=== PATIENT | male | born 1955 | race Caucasian/White ===

== ENCOUNTER 2018-04-19 09:40 | Emergency (ER) | payer BC ==
[2018-04-19] MEDS ORDERED: Ketorolac 30 MG/ML SDV IM ONE (10:28)
--- NOTE | 2018-04-19 10:37 | EDM.PDOC ---
ED HPI GENERAL MEDICAL PROBLEM - General Chief Complaint: Back Pain or Injury Stated Complaint: LEGS HURTS Time Seen by Provider: 04/19/18 09:40 Source of Information: Reports: Patient History Limitations: Reports: No Limitations - History of Present Illness INITIAL COMMENTS - FREE TEXT/NARRATIVE: Dimas Kirby is a 62 y/o male presenting today to the ER complaining of Low back pain and leg pain. Patient states that for the past 1 month he has noticed worsening lower extremity edema and worsening low back pain. States he has gone couple of times to the chiropractor and he stated he had degenerative disease and see a medical provider. Former smoker, quit 5 years ago. Is taking albuterol and ipratropium for COPD. No chest pain or shortness of breath. No abdominal pain. Having regular bowel movements and no troubles urinating. Patient has noticed that his leg hurt more often when ambulating. No recent trauma to back or legs. No previous procedures. Bilateral Hip Pain Score (Numeric/FACES): 8 - Related Data Allergies Allergy/AdvReac Type Severity Reaction Status Date / Time No Known Allergies Allergy Verified 04/19/18 10:01 Home Meds: Home Meds Albuterol Sulfate [Proair Respiclick] 2 puff PO Q6HR PRN 30 Days #1 [email or web address] 04/19/18 [Rx] Diclofenac Sodium 100 gm TP TID #1 gel..gram. 04/19/18 [Rx] Ipratropium/Albuterol Sulfate [Iprat-Albut 0.5-3(2.5) mg/3 ml] 1 ampule PO QID # 1 ampul.neb 04/19/18 [Rx] Past Medical History Respiratory History: Reports: COPD - Infectious Disease History Infectious Disease History: Reports: Chicken Pox - Past Surgical History HEENT Surgical History: Reports: Tonsillectomy Other Musculoskeletal Surgeries/Procedures:: Degenerative Disc Disease Social & Family History - Family History Family Medical History: Noncontributory - Tobacco Use Smoking Status *Q: Former Smoker Used Tobacco, but Quit: Yes Month/Year Tobacco Last Used: 2012 - Caffeine Use Caffeine Use: Reports: Coffee - Recreational Drug Use Recreational Drug Use: No ED ROS GENERAL - Review of Systems Review Of Systems: See Below Constitutional: Reports: No Symptoms HEENT: Reports: No Symptoms Respiratory: Reports: No Symptoms Cardiovascular: Reports: No Symptoms Endocrine: Reports: No Symptoms GI/Abdominal: Reports: No Symptoms : Reports: No Symptoms Musculoskeletal: Reports: Back Pain, Leg Pain Skin: Reports: No Symptoms Neurological: Reports: No Symptoms Psychiatric: Reports: No Symptoms Hematologic/Lymphatic: Reports: No Symptoms Immunologic: Reports: No Symptoms ED EXAM,LOWER BACK PAIN/INJURY - Physical Exam Exam: See Below Exam Limited By: No Limitations General Appearance: Alert, WD/WN, No Apparent Distress Throat/Mouth: Other (bad dentition. missing teeth.) Head: Atraumatic, Normocephalic Respiratory/Chest: No Respiratory Distress, Lungs Clear, Normal Breath Sounds, No Accessory Muscle Use, Chest Non-Tender, Prolonged Expiration. No: Wheezing Cardiovascular: Normal Peripheral Pulses, Regular Rate, Rhythm, No Edema, No Gallop, No JVD, No Murmur, No Rub GI/Abdominal: Normal Bowel Sounds, Soft, Non-Tender, No Organomegaly, No Distention, No Abnormal Bruit, No Mass Back Exam: Vertebral Tenderness, Other (lumbar, sacra vertebral tenderness. No paraspinal muscle pain.) Extremities: Other (bilateral lower extremity edema, 1 + pitting edema. Loss of leg hair. Pedal pulses intact. Feet warm. Sensation intact bilaterally.) Neurological: Alert, Normal Mood/Affect, Normal Dorsiflexion, CN II-XII Intact, Normal Plantar Flexion, Normal Gait, Normal Reflexes, No Motor/Sensory Deficits , Oriented x 3 Psychiatric: Normal Affect, Normal Mood Skin Exam: Warm, Dry, Intact, Normal Color, No Rash Course - Vital Signs Last Recorded V/S: Last Vital Signs Temp 36.6 C 04/19/18 11:30 Pulse 107 H 04/19/18 11:30 Resp 20 04/19/18 11:30 BP 117/57 L 04/19/18 11:30 Pulse Ox 90 L 04/19/18 11:30 - Orders/Labs/Meds Meds: Medications Discontinued Medications Generic Name Dose Route Start Last Admin Trade Name Freq PRN Reason Stop Dose Admin Ketorolac Tromethamine 30 mg 04/19/18 10:28 04/19/18 11:04 Toradol IM 04/19/18 10:29 30 mg ONETIME ONE Administration Departure - Departure Time of Disposition: 11:43 Disposition: Home, Self-Care 01 Clinical Impression: Back pain of lumbar region with sciatica - Discharge Information *PRESCRIPTION DRUG MONITORING PROGRAM REVIEWED*: Not Applicable *COPY OF PRESCRIPTION DRUG MONITORING REPORT IN PATIENT TAE: Not Applicable Prescriptions: Albuterol Sulfate [Proair Respiclick] 2 puff PO Q6HR PRN 30 Days #1 aer.[email or web address] PRN Reason: Dyspnea Diclofenac Sodium 100 gm TP TID #1 gel..gram. Ipratropium/Albuterol Sulfate [Iprat-Albut 0.5-3(2.5) mg/3 ml] 1 ampule PO QID # 1 ampul.neb Instructions: Sciatica, Back Pain, Adult, [id number] Referrals: PCP,None [Primary Care Provider] - Forms: ED Department Discharge Additional Instructions: Follow up with Dr. Deal within 1-2 weeks at [facility].
--- NOTE | 2018-04-19 11:41 | US ---
ULTRASOUND EXAMINATION OF the left and right lower extremities WITH DOPPLER HISTORY: Swelling FINDINGS: Examination of the left and right legs were performed from the groin to the calf region. All visuali zed segments including common femoral, proximal greater saphenous, superficial femoral, popliteal and calf veins appear patent with good compressibility and augmentation. There is no evidence of deep v ein thrombosis. Non suspicious inguinal lymph nodes noted bilaterally. IMPRESSION: No evidence of a DVT.
== END 2018-04-19 12:12 | disposition home or self-care (01) ==
LOC: MW.ED 09:40
DX: M54.41 Lumbago with sciatica, right side (principal); M54.42 Lumbago with sciatica, left side; J44.9 Chronic obstructive pulmonary disease, unspecified; Z87.891 Personal history of nicotine dependence
CPT/HCPCS: 93970; 96372; 99283; J1885

== ENCOUNTER 2019-02-20 12:35 | Emergency (ER) | payer MEDICAID ==
--- NOTE | 2019-02-20 12:48 | EDM.PDOC ---
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 He also has COPD and states that he has been having increased shortness of breath today. Patient uses 5 L of O2. Review of systems: As per history of present illness and below otherwise all systems reviewed and negative. Past medical history: As per history of present illness and as reviewed below otherwise noncontributory. Surgical history: As per history of present illness and as reviewed below otherwise noncontributory. Social history: No reported history of drug or alcohol abuse. Family history: As per history of present illness and as reviewed below otherwise noncontributory. Physical exam: General: Well developed, well nourished in NAD HEENT: Atraumatic, normocephalic, pupils reactive, negative for conjunctival pallor or scleral icterus, mucous membranes moist, throat clear, neck supple, nontender, trachea midline. Lungs: Clear to auscultation, markedly decreased breath sounds equal bilaterally , chest nontender. No respiratory distress or chest wall retractions Heart: S1S2, regular, negative for clicks, rubs, or JVD. Bilateral 2+ edema Abdomen: NABS, Soft, nondistended, nontender. Negative for masses or hepatosplenomegaly. Negative for costovertebral tenderness. Pelvis: Stable nontender. Genitourinary: Deferred. Rectal: Deferred. Extremities: Atraumatic, negative for cords or calf pain. Neurovascular unremarkable. Neuro: Awake, alert, oriented. Cranial nerves II through XII unremarkable. Cerebellum unremarkable. Motor and sensory unremarkable throughout. Exam nonfocal. Skin:warm and dry Diagnostics: Chest x-ray, CBC, chemistry, BNP Therapeutics: DuoNeb, Solu-Medrol ED Course: Improved, patient does not wish to be admitted he wants to go home. He has oxygen with him. Impression: Prostate cancer, COPD, Bilateral malignant pleural effusions Prescriptions: Medrol Dosepak Plan: Take meds as directed, follow up with your primary care physician, return to ER if symptoms worsen or change. Definitive disposition and diagnosis as appropriate pending reevaluation and review of above. - Related Data Allergies Allergy/AdvReac Type Severity Reaction Status Date / Time No Known Allergies Allergy Verified 07/12/18 19:41 Home Meds: Home Meds Albuterol/Ipratropium [Combivent Respimat] 2 puff INH QID 07/12/18 [History] Omeprazole 40 mg PO ACBREAKFAST 07/12/18 [History] traMADol [Ultram] 50 mg PO QID PRN 07/12/18 [History] Albuterol Sulfate [Proair Hfa] 90 mcg INH DAILY 02/20/19 [History] Diltiazem HCl [Diltiazem 24Hr Cd] 180 mg PO DAILY 02/20/19 [History] methylPREDNISolone [Medrol] 4 mg PO ASDIRECTED #1 dosepk 02/20/19 [Rx] Past Medical History HEENT History: Reports: Impaired Vision Respiratory History: Reports: COPD Other Respiratory History: "Septic" from PNA in the Genitourinary History: Reports: Other (See Below) Other Genitourinary History: prostate cancer Oncologic (Cancer) History: Reports: Prostate - Infectious Disease History Infectious Disease History: Reports: C-Difficile - Past Surgical History HEENT Surgical History: Reports: Tonsillectomy Male Surgical History: Reports: None Other Musculoskeletal Surgeries/Procedures:: Degenerative Disc Disease Social & Family History - Family History Family Medical History: Noncontributory - Caffeine Use Caffeine Use: Reports: Coffee ED ROS GENERAL - Review of Systems Review Of Systems: ROS reveals no pertinent complaints other than HPI. ED EXAM, GENERAL - Physical Exam Exam: See Below (See history of present illness) Course - Vital Signs Last Recorded V/S: Last Vital Signs Temp 98.3 F 02/20/19 12:46 Pulse 113 H 02/20/19 13:35 Resp 20 02/20/19 13:35 BP 122/62 02/20/19 13:35 Pulse Ox 95 02/20/19 13:35 - Orders/Labs/Meds Orders: Active Orders 24 hr Category Date Time Status Cardiac Monitoring [RC] . DIRECTED Care 02/20/19 12:51 Active EKG Documentation Completion [RC] STAT Care 02/20/19 12:51 Active RT Aerosol Therapy [RC] ASDIRECTED Care 02/20/19 12:52 Active Chest 1V Frontal [CR] Stat Exams 02/20/19 12:52 Taken Sodium Chloride 0.9% [Normal Saline] 250 ml Med 02/20/19 13:53 Active IV .BOLUS Sodium Chloride 0.9% [Saline Flush] Med 02/20/19 12:52 Active 10 ml FLUSH ASDIRECTED PRN Sodium Chloride 0.9% [Saline Flush] Med 02/20/19 12:52 Active 2.5 ml FLUSH ASDIRECTED PRN Saline Lock Insert [OM.PC] Stat Oth 02/20/19 12:51 Ordered Medication Orders Sodium Chloride (Normal Saline) 250 mls @ 999 mls/hr IV .BOLUS ONE Stop: 02/20/19 14:08 Sodium Chloride (Saline Flush) 10 ml FLUSH ASDIRECTED PRN PRN Reason: Keep Vein Open Sodium Chloride (Saline Flush) 2.5 ml FLUSH ASDIRECTED PRN PRN Reason: Keep Vein Open Labs: Laboratory Tests 02/20/19 02/20/19 02/20/19 Range/Units 13:16 13:16 13:16 WBC 5.87 (4.0-11.0) K/uL RBC 5.20 (4.50-5.90) M/uL Hgb 13.3 (13.0-17.0) g/dL Hct 44.0 (38.0-50.0) % MCV 84.6 (80.0-98.0) fL MCH 25.6 L (27.0-32.0) pg MCHC 30.2 L (31.0-37.0) g/dL RDW Std Deviation 56.4 (28.0-62.0) fl RDW Coeff of Kaley 18 H (11.0-15.0) % Plt Count 219 (150-400) K/uL MPV 8.90 (7.40-12.00) fL Neut % (Auto) 67.8 (48.0-80.0) % Lymph % (Auto) 17.2 (16.0-40.0) % [place] % (Auto) 13.3 (0.0-15.0) % Eos % (Auto) 1.5 (0.0-7.0) % Baso % (Auto) 0.2 (0.0-1.5) % Neut # (Auto) 4.0 (1.4-5.7) K/uL Lymph # (Auto) 1.0 (0.6-2.4) K/uL [place] # (Auto) 0.8 (0.0-0.8) K/uL Eos # (Auto) 0.1 (0.0-0.7) K/uL Baso # (Auto) 0.0 (0.0-0.1) K/uL Nucleated RBC % 0.0 /100WBC Nucleated RBCs # 0 K/uL Sodium 131 L (136-148) mmol/L Potassium 4.8 (3.5-5.1) mmol/L Chloride 95 L (98-107) mmol/L Carbon Dioxide 39.6 H (21.0-32.0) mmol/L BUN 5 L (7.0-18.0) mg/dL Creatinine 0.6 L (0.8-1.3) mg/dL Est Cr Clr Drug Dosing TNP Estimated GFR (MDRD) > 60.0 ml/min Glucose 116 H (74-106) mg/dL Calcium 8.8 (8.5-10.1) mg/dL Total Bilirubin 0.3 (0.2-1.0) mg/dL AST 11 L (15-37) IU/L ALT 9 L (14-63) IU/L Alkaline Phosphatase 99 (46-116) U/L B-Natriuretic Peptide 95 (<100) PG/ML Total Protein 6.2 L (6.4-8.2) g/dL Albumin 3.0 L (3.4-5.0) g/dL Globulin 3.2 (2.6-4.0) g/dL Albumin/Globulin Ratio 0.9 (0.9-1.6) Meds: Medications Generic Name Dose Route Start Last Admin Trade Name Freq PRN Reason Stop Dose Admin Sodium Chloride 250 mls @ 999 mls/hr 02/20/19 13:53 Normal Saline IV 02/20/19 14:08 .BOLUS ONE Sodium Chloride 10 ml 02/20/19 12:52 Saline Flush FLUSH ASDIRECTED PRN Keep Vein Open Sodium Chloride 2.5 ml 02/20/19 12:52 Saline Flush FLUSH ASDIRECTED PRN Keep Vein Open Discontinued Medications Generic Name Dose Route Start Last Admin Trade Name Freq PRN Reason Stop Dose Admin Albuterol/Ipratropium 3 ml 02/20/19 12:52 02/20/19 13:12 Duoneb 3.0-0.5 Mg/3 Ml NEB 02/20/19 12:53 3 ml ONETIME ONE Administration Methylprednisolone Sodium Succinate 125 mg 02/20/19 12:52 02/20/19 13:12 Solu-Medrol IVPUSH 02/20/19 12:53 125 mg ONETIME ONE Administration Departure - Departure Time of Disposition: 14:01 Disposition: Home, Self-Care 01 Condition: Good Clinical Impression: COPD exacerbation, Bilateral pleural effusion - Discharge Information *PRESCRIPTION DRUG MONITORING PROGRAM REVIEWED*: No *COPY OF PRESCRIPTION DRUG MONITORING REPORT IN PATIENT TAE: No Prescriptions: methylPREDNISolone [Medrol] 4 mg PO ASDIRECTED #1 dosepk Referrals: Georges Cisse MD [Primary Care Provider] - Forms: ED Department Discharge Additional Instructions: The following information is given to patients seen in the emergency department who are being discharged to home. This information is to outline your options for follow-up care. We provide all patients seen in our emergency department with a follow-up referral. The need for follow-up, as well as the timing and circumstances, are variable depending upon the specifics of your emergency department visit. If you don't have a primary care physician on staff, we will provide you with a referral. We always advise you to contact your personal physician following an emergency department visit to inform them of the circumstance of the visit and for follow-up with them and/or the need for any referrals to a consulting specialist. The emergency department will also refer you to a specialist when appropriate. This referral assures that you have the opportunity for follow-up care with a specialist. All of these measure are taken in an effort to provide you with optimal care, which includes your follow-up. Under all circumstances we always encourage you to contact your private physician who remains a resource for coordinating your care. When calling for follow-up care, please make the office aware that this follow-up is from your recent emergency room visit. If for any reason you are refused follow-up, please contact the [facility] Emergency Department at and asked to speak to the emergency department charge nurse. - My Orders Last 24 Hours: My Active Orders 02/20/19 12:51 Cardiac Monitoring [RC] . DIRECTED EKG Documentation Completion [RC] STAT Saline Lock Insert [OM.PC] Stat 02/20/19 12:52 RT Aerosol Therapy [RC] ASDIRECTED Chest 1V Frontal [CR] Stat Sodium Chloride 0.9% [Saline Flush] 10 ml FLUSH ASDIRECTED PRN Sodium Chloride 0.9% [Saline Flush] 2.5 ml FLUSH ASDIRECTED PRN 02/20/19 13:53 Sodium Chloride 0.9% [Normal Saline] 250 ml IV .BOLUS - Assessment/Plan Last 24 Hours: My Active Orders 02/20/19 12:51 Cardiac Monitoring [RC] . DIRECTED EKG Documentation Completion [RC] STAT Saline Lock Insert [OM.PC] Stat 02/20/19 12:52 RT Aerosol Therapy [RC] ASDIRECTED Chest 1V Frontal [CR] Stat Sodium Chloride 0.9% [Saline Flush] 10 ml FLUSH ASDIRECTED PRN Sodium Chloride 0.9% [Saline Flush] 2.5 ml FLUSH ASDIRECTED PRN 02/20/19 13:53 Sodium Chloride 0.9% [Normal Saline] 250 ml IV .BOLUS
[2019-02-20] MEDS ORDERED: Sodium Chloride 0.9% 2.5 ML Syringe FLUSH PRN (12:52)
[2019-02-20] MEDS ORDERED: Sodium Chloride 0.9% 10 ML Syringe FLUSH PRN (12:52)
[2019-02-20] MEDS ORDERED: methylPREDNISolone Sodium Succinate 125 MG/2 ML SDV IVPUSH ONE (12:52)
[2019-02-20] MEDS ORDERED: Albuterol/Ipratropium 3.0-0.5 MG/3 ML Neb Soln NEB ONE (12:52)
[2019-02-20 13:43] LABS: CHLORIDE,CL 95 mmol/L (98-107); SODIUM,NA 131 mmol/L (136-148)
[2019-02-20] MEDS ORDERED: Sodium Chloride 0.9% 250 ML IV ONE (13:53)
--- NOTE | 2019-02-20 14:07 | CR ---
EXAMINATION: Portable chest radiograph. HISTORY: Shortness of breath. FINDINGS: The trachea is midline. The cardiomediastinal silhouette is within normal limits. Small to moderate bilateral pleural effusions with adjacent atelectasis. Osseous structures appear sclerotic, consistent with prostate metastases. IMPRESSION: 1. Small to moderate bilateral pleural effusions.
== END 2019-02-20 14:30 | disposition home or self-care (01) ==
LOC: MW.ED 12:35
DX: J44.1 Chronic obstructive pulmonary disease with (acute) exacerbation (principal); J90 Pleural effusion, not elsewhere classified; C61 Malignant neoplasm of prostate; C79.51 Secondary malignant neoplasm of bone; Z79.899 Other long term (current) drug therapy
CPT/HCPCS: 36415; 71045; 80053; 83880; 85025; 93005; 94640; 96374; 99285; J2930; 99283; J7620-GY

== ENCOUNTER 2020-02-29 09:54 | Inpatient (IN) | payer MEDICAID, OTHER ==
[2020-02-29] MEDS ORDERED: Sodium Chloride 0.9% 2.5 ML Syringe FLUSH PRN (10:01)
[2020-02-29] MEDS ORDERED: Sodium Chloride 0.9% 10 ML Syringe FLUSH PRN (10:01)
--- NOTE | 2020-02-29 10:16 | EDM.PDOC ---
ED HPI GENERAL MEDICAL PROBLEM - General Chief Complaint: Respiratory Problem Stated Complaint: TROUBLE BREATHING Time Seen by Provider: 02/29/20 10:01 Source of Information: Reports: Patient, EMS - History of Present Illness INITIAL COMMENTS - FREE TEXT/NARRATIVE: 64-year-old male past medical history of prostate adenocarcinoma with metastatic disease including spinal canal invasion and threatened spinal cord compression within the lumbar spine, status post radiotherapy.COPD, bilateral pleural effusions, GERD, Prostate cancer in remission presenting with shortness of breath. Presents to the emergency department via ambulance with complaints of worsening dyspnea since about 2:00 this morning. Patient normally uses 4 L of oxygen by nasal cannula. His friend called 911 because he was concerned about his breathing. Patient states that he is working towards being on hospice but he is not sure what for. He normally ambulates with a walker but states that he has been too weak to do so over the past 2 weeks. Paramedics noted that there was stool smeared over his medications and the patient was also incontinent of stool. Patient denies any fever or chest discomfort. He does complain of c hronic lower extremity edema that he states is not any worse lately. - Related Data Allergies Allergy/AdvReac Type Severity Reaction Status Date / Time No Known Allergies Allergy Verified 02/29/20 10:30 Home Meds: Home Meds Albuterol Sulfate [Proair Hfa] 90 mcg INH DAILY 02/20/19 [History] dilTIAZem HCL [Dilt-XR] 180 mg PO DAILY 02/29/20 [History] Past Medical History HEENT History: Reports: Impaired Vision Respiratory History: Reports: COPD Other Respiratory History: "Septic" from PNA in the Genitourinary History: Reports: Other (See Below) Other Genitourinary History: prostate cancer Oncologic (Cancer) History: Reports: Prostate - Infectious Disease History Infectious Disease History: Reports: C-Difficile - Past Surgical History HEENT Surgical History: Reports: Tonsillectomy Male Surgical History: Reports: None Other Musculoskeletal Surgeries/Procedures:: Degenerative Disc Disease Social & Family History - Family History Family Medical History: Noncontributory - Caffeine Use Caffeine Use: Reports: Coffee ED ROS GENERAL - Review of Systems Review Of Systems: See Below Constitutional: Denies: Fever HEENT: Reports: No Symptoms Respiratory: Reports: Shortness of Breath. Denies: Cough, Hemoptysis Cardiovascular: Reports: Edema (Chronic BLE). Denies: Chest Pain Endocrine: Reports: No Symptoms GI/Abdominal: Denies: Abdominal Pain, Diarrhea, Nausea, Vomiting : Reports: No Symptoms Musculoskeletal: Denies: Back Pain Skin: Denies: Rash Neurological: Denies: Headache Psychiatric: Reports: No Symptoms Hematologic/Lymphatic: Reports: No Symptoms Immunologic: Reports: No Symptoms ED EXAM, GENERAL - Physical Exam Exam: See Below Free Text/Narrative:: Vital signs reviewed. Nursing notes reviewed. Constitutional: Awake, alert, disheveled appearing man Head: Normocephalic, atraumatic. Eyes: EOMI, conjunctiva normal, no discharge, no scleral icterus. Ears, Nose, Throat: External ears and nose normal, moist oral mucosa. Tacky mucous membranes Cardiovascular: Tachycardic, 2+ radial pulse, capillary refill less than 2 seconds. RRR, no M/R/G. Pitting edema to the bilateral lower extremities Pulmonary: normal work of breathing, no accessory muscle use. CTA BL Abdomen/GI: Soft, nontender, nondistended, no guarding or rigidity, no masses. Incontinent of stool Musculoskeletal: No deformities. Integumentary: Appropriate color for ethnicity, warm, dry, no pallor or jaundice, no rash. Pressure ulcer noted to the medial aspect of the right thigh near the gluteal crease Neurologic: Alert, answering questions appropriately, normal speech, no facial droop, moving all extremities well. Psychiatric: Appropriate mood and affect, normal thought process. EKG INTERPRETATION EKG Interpretation Comments: 12-Lead ECG Interpretation Acquired: 10:35 AM Rhythm: Sinus tachycardia Rate: 119/min Baden: Normal Intervals: Right bundle branch block Ectopy: None RV Strain: No obvious RV strain pattern. ST Segments/T-Waves: ST deviation in V2, T wave inversions in leads V2 and V3 Interpretation: Compared to 07/24/[address] deviation in V2 Course - Vital Signs Text/Narrative:: 64-year-old male with shortness of breath and generalized weakness, concern for failure to thrive. Patient tachycardic but hemodynamically stable, afebrile], well-appearing, looks nontoxic. Differential diagnosis includes but is not limited to: Sepsis, pneumonia, congestive heart failure, pulmonary embolism, thoracic aortic dissection, pericardial effusion, bacteremia, electrolyte disturbance, anemia, acute coronary syndrome, viral pneumonia, COPD exacerbation, etc. CBC shows a stable anemia. INR is normal. D-dimer elevated at 3.41. Normal lactate. Electrolytes and renal function are reassuring. Troponin negative. BNP within normal limits. Hepatic markers suggest poor nutrition. Chest x-ray stable. CT pulmonary angiogram shows bilateral pleural effusions but no evidence of pulmonary embolism. Suspect that patient's symptoms are due to volume overload given pedal edema and pleural effusions. No evidence of myocardial ischemia, infection, or PE. Continued to have resting tachycardia to 125. Will defer decision about volume resuscitation versus diuresis to the admitting hospitalist Dr. Nails. Admitted to observation status in good condition. Last Recorded V/S: Last Vital Signs Temp 36.6 C 02/29/20 10:00 Pulse 122 H 02/29/20 13:04 Resp 17 02/29/20 13:04 BP 106/51 L 02/29/20 13:04 Pulse Ox 100 02/29/20 13:04 - Orders/Labs/Meds Orders: Active Orders 24 hr Category Date Time Status Patient Status [ADT] Stat ADT 02/29/20 13:57 Active Cardiac Monitoring [RC] CONTINUOUS Care 02/29/20 10:02 Active EKG Documentation Completion [RC] STAT Care 02/29/20 10:01 Active Overnight Pulse Oximetry [RC] Click to Edit Care 02/29/20 10:02 Active Oxygen Therapy, ED [RC] STAT Care 02/29/20 10:02 Active CULTURE BLOOD [BC] Stat Lab 02/29/20 10:22 Received CULTURE BLOOD [BC] Stat Lab 02/29/20 10:53 Received Sodium Chloride 0.9% [Saline Flush] Med 02/29/20 10:01 Active 10 ml FLUSH ASDIRECTED PRN Sodium Chloride 0.9% [Saline Flush] Med 02/29/20 10:01 Active 2.5 ml FLUSH ASDIRECTED PRN Blood Culture x2 Reflex Set [OM.PC] Stat Oth 02/29/20 10:01 Ordered Pulse Oximetry Continuous Monitoring [OM.PC] Routine Oth 02/29/20 10:01 Ordered Saline Lock Insert [OM.PC] Stat Oth 02/29/20 10:01 Ordered Severe Sepsis Onset Time [OM.PC] Stat Oth 02/29/20 10:01 Ordered Medication Orders Sodium Chloride (Saline Flush) 10 ml FLUSH ASDIRECTED PRN PRN Reason: Keep Vein Open Sodium Chloride (Saline Flush) 2.5 ml FLUSH ASDIRECTED PRN PRN Reason: Keep Vein Open Labs: Laboratory Tests 02/29/20 02/29/20 02/29/20 Range/Units 10:22 10:22 10:22 WBC 4.59 (4.0-11.0) K/uL RBC 3.10 L (4.50-5.90) M/uL Hgb 7.5 L (13.0-17.0) g/dL Hct 26.3 L (38.0-50.0) % MCV 84.8 (80.0-98.0) fL MCH 24.2 L (27.0-32.0) pg MCHC 28.5 L (31.0-37.0) g/dL RDW Std Deviation 60.2 (28.0-62.0) fl RDW Coeff of Kaley 19 H (11.0-15.0) % Plt Count 263 (150-400) K/uL MPV 8.10 (7.40-12.00) fL Neut % (Auto) 53.5 (48.0-80.0) % Lymph % (Auto) 28.5 (16.0-40.0) % [place] % (Auto) 15.0 (0.0-15.0) % Eos % (Auto) 2.8 (0.0-7.0) % Baso % (Auto) 0.2 (0.0-1.5) % Neut # (Auto) 2.5 (1.4-5.7) K/uL Lymph # (Auto) 1.3 (0.6-2.4) K/uL [place] # (Auto) 0.7 (0.0-0.8) K/uL Eos # (Auto) 0.1 (0.0-0.7) K/uL Baso # (Auto) 0.0 (0.0-0.1) K/uL Nucleated RBC % 0.0 /100WBC Nucleated RBCs # 0 K/uL INR 1.19 D-Dimer, Quantitative (0.0-0.50) mg/L FEU Lactate 1.0 (0.20-2.00) mmol/L Sodium (136-148) mmol/L Potassium (3.5-5.1) mmol/L Chloride (98-107) mmol/L Carbon Dioxide (21.0-32.0) mmol/L BUN (7.0-18.0) mg/dL Creatinine (0.8-1.3) mg/dL Est Cr Clr Drug Dosing Estimated GFR (MDRD) ml/min Glucose (74-106) mg/dL Calcium (8.5-10.1) mg/dL Total Bilirubin (0.2-1.0) mg/dL AST (15-37) IU/L ALT (14-63) IU/L Alkaline Phosphatase (46-116) U/L Troponin I (0.000-0.056) ng/mL B-Natriuretic Peptide (<100) PG/ML Total Protein (6.4-8.2) g/dL Albumin (3.4-5.0) g/dL Globulin (2.6-4.0) g/dL Albumin/Globulin Ratio (0.9-1.6) 02/29/20 02/29/20 02/29/20 Range/Units 10:22 10:22 10:22 WBC (4.0-11.0) K/uL RBC (4.50-5.90) M/uL Hgb (13.0-17.0) g/dL Hct (38.0-50.0) % MCV (80.0-98.0) fL MCH (27.0-32.0) pg MCHC (31.0-37.0) g/dL RDW Std Deviation (28.0-62.0) fl RDW Coeff of Kaley (11.0-15.0) % Plt Count (150-400) K/uL MPV (7.40-12.00) fL Neut % (Auto) (48.0-80.0) % Lymph % (Auto) (16.0-40.0) % [place] % (Auto) (0.0-15.0) % Eos % (Auto) (0.0-7.0) % Baso % (Auto) (0.0-1.5) % Neut # (Auto) (1.4-5.7) K/uL Lymph # (Auto) (0.6-2.4) K/uL [place] # (Auto) (0.0-0.8) K/uL Eos # (Auto) (0.0-0.7) K/uL Baso # (Auto) (0.0-0.1) K/uL Nucleated RBC % /100WBC Nucleated RBCs # K/uL INR D-Dimer, Quantitative 3.41 H (0.0-0.50) mg/L FEU Lactate (0.20-2.00) mmol/L Sodium 137 (136-148) mmol/L Potassium 3.5 (3.5-5.1) mmol/L Chloride 98 (98-107) mmol/L Carbon Dioxide 35.5 H (21.0-32.0) mmol/L BUN 5 L (7.0-18.0) mg/dL Creatinine 0.5 L (0.8-1.3) mg/dL Est Cr Clr Drug Dosing TNP Estimated GFR (MDRD) > 60.0 ml/min Glucose 103 (74-106) mg/dL Calcium 8.1 L (8.5-10.1) mg/dL Total Bilirubin 0.4 (0.2-1.0) mg/dL AST 84 H (15-37) IU/L ALT 18 (14-63) IU/L Alkaline Phosphatase 685 H (46-116) U/L Troponin I < 0.050 (0.000-0.056) ng/mL B-Natriuretic Peptide 76 (<100) PG/ML Total Protein 5.6 L (6.4-8.2) g/dL Albumin 2.0 L (3.4-5.0) g/dL Globulin 3.6 (2.6-4.0) g/dL Albumin/Globulin Ratio 0.6 L (0.9-1.6) Meds: Medications Generic Name Dose Route Start Last Admin Trade Name Freq PRN Reason Stop Dose Admin Sodium Chloride 10 ml 02/29/20 10:01 Saline Flush FLUSH ASDIRECTED PRN Keep Vein Open Sodium Chloride 2.5 ml 02/29/20 10:01 Saline Flush FLUSH ASDIRECTED PRN Keep Vein Open Discontinued Medications Generic Name Dose Route Start Last Admin Trade Name Freq PRN Reason Stop Dose Admin Iopamidol 100 ml 02/29/20 12:36 02/29/20 12:37 Isovue-370 (76%) IVPUSH 02/29/20 12:37 100 ml ONETIME ONE Administration Departure - Departure Time of Disposition: 13:59 Disposition: Refer to Observation Condition: Good Clinical Impression: Dyspnea Qualifiers: Dyspnea type: shortness of breath Qualified Code(s): R06.02 - Shortness of breath; R06.00 - Dyspnea, unspecified; R06.01 - Orthopnea - Discharge Information Sepsis Event Note (ED) - Focused Exam Vital Signs: Vital Signs Temp Pulse Resp BP Pulse Ox 02/29/20 13:04 122 H 17 106/51 L 100 02/29/20 12:49 118 H 17 104/53 L 100 02/29/20 12:04 123 H 13 105/43 L 100 02/29/20 11:19 121 H 17 100/46 L 100 02/29/20 10:00 36.6 C 120 H 20 102/48 L 100 - My Orders Last 24 Hours: My Active Orders 02/29/20 10:01 EKG Documentation Completion [RC] STAT Sodium Chloride 0.9% [Saline Flush] 10 ml FLUSH ASDIRECTED PRN Sodium Chloride 0.9% [Saline Flush] 2.5 ml FLUSH ASDIRECTED PRN Blood Culture x2 Reflex Set [OM.PC] Stat Pulse Oximetry Continuous Monitoring [OM.PC] Routine Saline Lock Insert [OM.PC] Stat Severe Sepsis Onset Time [OM.PC] Stat 02/29/20 10:02 Cardiac Monitoring [RC] CONTINUOUS Overnight Pulse Oximetry [RC] Click to Edit Oxygen Therapy, ED [RC] STAT 02/29/20 10:22 CULTURE BLOOD [BC] Stat 02/29/20 10:53 CULTURE BLOOD [BC] Stat 02/29/20 13:57 Patient Status [ADT] Stat - Assessment/Plan Last 24 Hours: My Active Orders 02/29/20 10:01 EKG Documentation Completion [RC] STAT Sodium Chloride 0.9% [Saline Flush] 10 ml FLUSH ASDIRECTED PRN Sodium Chloride 0.9% [Saline Flush] 2.5 ml FLUSH ASDIRECTED PRN Blood Culture x2 Reflex Set [OM.PC] Stat Pulse Oximetry Continuous Monitoring [OM.PC] Routine Saline Lock Insert [OM.PC] Stat Severe Sepsis Onset Time [OM.PC] Stat 02/29/20 10:02 Cardiac Monitoring [RC] CONTINUOUS Overnight Pulse Oximetry [RC] Click to Edit Oxygen Therapy, ED [RC] STAT 02/29/20 10:22 CULTURE BLOOD [BC] Stat 02/29/20 10:53 CULTURE BLOOD [BC] Stat 02/29/20 13:57 Patient Status [ADT] Stat
[2020-02-29 10:57] LABS: BLOOD UREA NITROGEN,BUN 5 mg/dL (7.0-18.0); CARBON DIOXIDE,CO2 35.5 mmol/L (21.0-32.0); CHLORIDE,CL 98 mmol/L (98-107); GLUCOSE RANDOM 103 mg/dL (74-106); POTASSIUM,K 3.5 mmol/L (3.5-5.1); SODIUM,NA 137 mmol/L (136-148)
--- NOTE | 2020-02-29 11:34 | CR ---
Chest: Frontal view of the chest was obtained. Comparison: Prior chest x-ray of 02/20/19. Blunting of the costophrenic angles are noted which is stable. Lungs show no definite acute parenchymal change. Heart size and mediastinum are normal. Diffusely sclerotic osseous structures which is felt compatible with osteoblastic metastasis. Impression: 1. Findings as noted above. 2. Nothing acute is definitely appreciated. Diagnostic code #9 Study was dictated in MDT
[2020-02-29] MEDS ORDERED: Iopamidol 755 Mg/ML 100 ML Bottle IVPUSH ONE (12:36)
--- NOTE | 2020-02-29 13:09 | CT ---
CT chest Technique: Multiple axial sections were obtained from above the lung apices inferiorly through the lung bases. Intravenous contrast was utilized. Study performed as a pulmonary angiogram protocol. Findings: Pulmonary arteries are moderately well-opacified. No discrete filling defects are seen to indicate pulmonary embolism. Atherosclerotic calcifications are seen within the thoracic aorta without aneurysm. No dissection is seen. Mild coronary artery calcification is noted. Mediastinum and hilar regions show no adenopathy. Small bilateral pleural effusions are seen larger on the right side. Mild compressive atelectasis is noted adjacent to the pleural effusions. Lungs otherwise are clear. Diffusely sclerotic osseous structures are seen compatible with numerous osteoblastic metastasis. Visualized upper abdominal structures shows no discrete abnormality. Impression: 1. No findings of pulmonary embolism. 2. Small bilateral pleural effusions which are slightly larger on the right side. 3. Mild compressive type atelectasis adjacent to the pleural effusions. 4. Diffuse osteoblastic metastasis. Diagnostic code #9 Study was dictated in MDT
[2020-02-29] MEDS ORDERED: Albuterol/Ipratropium 3.0-0.5 MG/3 ML Neb Soln NEB PRN (15:15)
[2020-02-29] MEDS ORDERED: Ondansetron 4 MG/2 ML SDV IVPUSH PRN (15:15)
[2020-02-29] MEDS ORDERED: Sodium Chloride 0.9% 500 ML IV ONE (15:15)
[2020-02-29] MEDS ORDERED: Morphine 2 MG/ML SYRINGE IVPUSH PRN (15:15)
--- NOTE | 2020-02-29 15:24 | PCM.HP.2 ---
H&P History of Present Illness - General Date of Service: 02/29/20 Admit Problem/Dx: Admission Diagnosis/Problem Admission Diagnosis/Problem Dyspnea - History of Present Illness Initial Comments - Free Text/Narative: Patient is a 64-year-old male past medical history of stage 4 prostate adenocarcinoma with metastatic disease including spinal canal invasion and threatened spinal cord compression within the lumbar spine, status post radiotherapy.COPD, bilateral pleural effusions, GERD, Prostate cancer in remiss ion presenting with shortness of breath since about 2:00 this morning. Patient normally uses 4 L of oxygen by nasal cannula. His friend called 911 because he was concerned about his breathing and found him covered in his faeces.. He normally ambulates with a walker but states that he has been too weak to do so over the past 2 weeks. Patient denies any fever or chest discomfort. He does complain of chronic lower extremity edema that he states is not any worse lately. CBC shows a anemia. INR is normal. D-dimer elevated at 3.41. Normal lactate. Electrolytes and renal function are reassuring. Troponin negative. BNP within normal limits. Hepatic markers suggest poor nutrition. Chest x-ray stable. CT pulmonary angiogram shows bilateral pleural effusions but no evidence of pulmonary embolism. Patient was in [facility] sinus tachy cardia in 120s to 130s with intermittent SVT in 140s. He was admitted to ICU for further care due to concern of persistent tachycardia and soft pressures. When i saw the patient in ER he was lethargic, looked extremely dry, wasn't able to tell me his wishes about his code status as his mentation was not normal. I contacted his friend Marylu who is his rn progressive care as well she informed he has signed DNR/DNI papers in January and was going to be on hospice soon. He was supposed to have a meeting with hospice on Sunday. ABG was obtained which showed RA,hypercapnia, BiPAP was started, patient was reluctant to BiPAP. His BP started to go down despite adequate IV fluids and the ongoing blood transfusion. I called his POA , patients brother Chepe ([phone]) to get an consent for central line, Mr Mo stated his brother wouldn't not want a central line and would like the patient be made comfortable with palliative measures in place. Patient is being made comfort care and downgraded to [facility]sur. - Related Data Allergies/Adverse Reactions: Allergies Allergy/AdvReac Type Severity Reaction Status Date / Time No Known Allergies Allergy Verified 02/29/20 10:30 Home Medications: Home Meds Albuterol Sulfate [Proair Hfa] 90 mcg INH DAILY 02/20/19 [History] dilTIAZem HCL [Dilt-XR] 180 mg PO DAILY 02/29/20 [History] Past Medical History HEENT History: Reports: Impaired Vision Respiratory History: Reports: COPD Other Respiratory History: "Septic" from PNA in the Genitourinary History: Reports: Other (See Below) Other Genitourinary History: prostate cancer Oncologic (Cancer) History: Reports: Prostate - Infectious Disease History Infectious Disease History: Reports: C-Difficile - Past Surgical History HEENT Surgical History: Reports: Tonsillectomy Male Surgical History: Reports: None Other Musculoskeletal Surgeries/Procedures:: Degenerative Disc Disease Social & Family History - Family History Family Medical History: Noncontributory - Tobacco Use Smoking Status *Q: Unknown Ever Smoked - Caffeine Use Caffeine Use: Reports: Coffee H&P Review of Systems - Review of Systems: Review Of Systems: See Below Exam - Exam Exam: See Below - Vital Signs Vital Signs: Last Vital Signs Temp 36.6 C 02/29/20 10:00 Pulse 122 H 02/29/20 13:04 Resp 17 02/29/20 13:04 BP 106/51 L 02/29/20 13:04 Pulse Ox 100 02/29/20 13:04 - Exam Quality Assessment: Supplemental Oxygen General: Moderate Distress. No: Alert, Oriented Neck: Supple, Trachea Midline Lungs: Decreased Breath Sounds, Rales Cardiovascular: Normal S1, Normal S2, Tachycardia GI/Abdominal Exam: Soft, Non-Tender - Patient Data Lab Results Last 24 hrs: Laboratory Results - last 24 hr 02/29/20 02/29/20 02/29/20 Range/Units 10:22 10:22 10:22 WBC 4.59 (4.0-11.0) K/uL RBC 3.10 L (4.50-5.90) M/uL Hgb 7.5 L (13.0-17.0) g/dL Hct 26.3 L (38.0-50.0) % MCV 84.8 (80.0-98.0) fL MCH 24.2 L (27.0-32.0) pg MCHC 28.5 L (31.0-37.0) g/dL RDW Std Deviation 60.2 (28.0-62.0) fl RDW Coeff of Kaley 19 H (11.0-15.0) % Plt Count 263 (150-400) K/uL MPV 8.10 (7.40-12.00) fL Neut % (Auto) 53.5 (48.0-80.0) % Lymph % (Auto) 28.5 (16.0-40.0) % Clare % (Auto) 15.0 (0.0-15.0) % Eos % (Auto) 2.8 (0.0-7.0) % Baso % (Auto) 0.2 (0.0-1.5) % Neut # (Auto) 2.5 (1.4-5.7) K/uL Lymph # (Auto) 1.3 (0.6-2.4) K/uL Clare # (Auto) 0.7 (0.0-0.8) K/uL Eos # (Auto) 0.1 (0.0-0.7) K/uL Baso # (Auto) 0.0 (0.0-0.1) K/uL Nucleated RBC % 0.0 /100WBC Nucleated RBCs # 0 K/uL INR 1.19 D-Dimer, Quantitative (0.0-0.50) mg/L FEU Lactate 1.0 (0.20-2.00) mmol/L Sodium (136-148) mmol/L Potassium (3.5-5.1) mmol/L Chloride (98-107) mmol/L Carbon Dioxide (21.0-32.0) mmol/L BUN (7.0-18.0) mg/dL Creatinine (0.8-1.3) mg/dL Est Cr Clr Drug Dosing Estimated GFR (MDRD) ml/min Glucose (74-106) mg/dL Calcium (8.5-10.1) mg/dL Total Bilirubin (0.2-1.0) mg/dL AST (15-37) IU/L ALT (14-63) IU/L Alkaline Phosphatase (46-116) U/L Troponin I (0.000-0.056) ng/mL B-Natriuretic Peptide (<100) PG/ML Total Protein (6.4-8.2) g/dL Albumin (3.4-5.0) g/dL Globulin (2.6-4.0) g/dL Albumin/Globulin Ratio (0.9-1.6) Urine Color Urine Appearance Urine pH (5.0-8.0) Ur Specific [place] (1.001-1.035) Urine Protein (NEGATIVE) mg/dL Urine Glucose (UA) (NEGATIVE) mg/dL Urine Ketones (NEGATIVE) mg/dL Urine Occult Blood (NEGATIVE) Urine Nitrite (NEGATIVE) Urine Bilirubin (NEGATIVE) Urine Urobilinogen (<2.0) EU/dL Ur Leukocyte Esterase (NEGATIVE) Urine RBC (0-2/HPF) Urine WBC (0-5/HPF) Ur Epithelial Cells (NONE-FEW) Urine Bacteria (NEGATIVE) 02/29/20 02/29/20 02/29/20 Range/Units 10:22 10:22 10:22 WBC (4.0-11.0) K/uL RBC (4.50-5.90) M/uL Hgb (13.0-17.0) g/dL Hct (38.0-50.0) % MCV (80.0-98.0) fL MCH (27.0-32.0) pg MCHC (31.0-37.0) g/dL RDW Std Deviation (28.0-62.0) fl RDW Coeff of Kaley (11.0-15.0) % Plt Count (150-400) K/uL MPV (7.40-12.00) fL Neut % (Auto) (48.0-80.0) % Lymph % (Auto) (16.0-40.0) % Clare % (Auto) (0.0-15.0) % Eos % (Auto) (0.0-7.0) % Baso % (Auto) (0.0-1.5) % Neut # (Auto) (1.4-5.7) K/uL Lymph # (Auto) (0.6-2.4) K/uL Clare # (Auto) (0.0-0.8) K/uL Eos # (Auto) (0.0-0.7) K/uL Baso # (Auto) (0.0-0.1) K/uL Nucleated RBC % /100WBC Nucleated RBCs # K/uL INR D-Dimer, Quantitative 3.41 H (0.0-0.50) mg/L FEU Lactate (0.20-2.00) mmol/L Sodium 137 (136-148) mmol/L Potassium 3.5 (3.5-5.1) mmol/L Chloride 98 (98-107) mmol/L Carbon Dioxide 35.5 H (21.0-32.0) mmol/L BUN 5 L (7.0-18.0) mg/dL Creatinine 0.5 L (0.8-1.3) mg/dL Est Cr Clr Drug Dosing TNP Estimated GFR (MDRD) > 60.0 ml/min Glucose 103 (74-106) mg/dL Calcium 8.1 L (8.5-10.1) mg/dL Total Bilirubin 0.4 (0.2-1.0) mg/dL AST 84 H (15-37) IU/L ALT 18 (14-63) IU/L Alkaline Phosphatase 685 H (46-116) U/L Troponin I < 0.050 (0.000-0.056) ng/mL B-Natriuretic Peptide 76 (<100) PG/ML Total Protein 5.6 L (6.4-8.2) g/dL Albumin 2.0 L (3.4-5.0) g/dL Globulin 3.6 (2.6-4.0) g/dL Albumin/Globulin Ratio 0.6 L (0.9-1.6) Urine Color Urine Appearance Urine pH (5.0-8.0) Ur Specific [place] (1.001-1.035) Urine Protein (NEGATIVE) mg/dL Urine Glucose (UA) (NEGATIVE) mg/dL Urine Ketones (NEGATIVE) mg/dL Urine Occult Blood (NEGATIVE) Urine Nitrite (NEGATIVE) Urine Bilirubin (NEGATIVE) Urine Urobilinogen (<2.0) EU/dL Ur Leukocyte Esterase (NEGATIVE) Urine RBC (0-2/HPF) Urine WBC (0-5/HPF) Ur Epithelial Cells (NONE-FEW) Urine Bacteria (NEGATIVE) 02/29/20 Range/Units 14:02 WBC (4.0-11.0) K/uL RBC (4.50-5.90) M/uL Hgb (13.0-17.0) g/dL Hct (38.0-50.0) % MCV (80.0-98.0) fL MCH (27.0-32.0) pg MCHC (31.0-37.0) g/dL RDW Std Deviation (28.0-62.0) fl RDW Coeff of Kaley (11.0-15.0) % Plt Count (150-400) K/uL MPV (7.40-12.00) fL Neut % (Auto) (48.0-80.0) % Lymph % (Auto) (16.0-40.0) % Clare % (Auto) (0.0-15.0) % Eos % (Auto) (0.0-7.0) % Baso % (Auto) (0.0-1.5) % Neut # (Auto) (1.4-5.7) K/uL Lymph # (Auto) (0.6-2.4) K/uL Clare # (Auto) (0.0-0.8) K/uL Eos # (Auto) (0.0-0.7) K/uL Baso # (Auto) (0.0-0.1) K/uL Nucleated RBC % /100WBC Nucleated RBCs # K/uL INR D-Dimer, Quantitative (0.0-0.50) mg/L FEU Lactate (0.20-2.00) mmol/L Sodium (136-148) mmol/L Potassium (3.5-5.1) mmol/L Chloride (98-107) mmol/L Carbon Dioxide (21.0-32.0) mmol/L BUN (7.0-18.0) mg/dL Creatinine (0.8-1.3) mg/dL Est Cr Clr Drug Dosing Estimated GFR (MDRD) ml/min Glucose (74-106) mg/dL Calcium (8.5-10.1) mg/dL Total Bilirubin (0.2-1.0) mg/dL AST (15-37) IU/L ALT (14-63) IU/L Alkaline Phosphatase (46-116) U/L Troponin I (0.000-0.056) ng/mL B-Natriuretic Peptide (<100) PG/ML Total Protein (6.4-8.2) g/dL Albumin (3.4-5.0) g/dL Globulin (2.6-4.0) g/dL Albumin/Globulin Ratio (0.9-1.6) Urine Color YELLOW Urine Appearance CLEAR Urine pH 5.5 (5.0-8.0) Ur Specific [place] 1.015 (1.001-1.035) Urine Protein NEGATIVE (NEGATIVE) mg/dL Urine Glucose (UA) NEGATIVE (NEGATIVE) mg/dL Urine Ketones NEGATIVE (NEGATIVE) mg/dL Urine Occult Blood NEGATIVE (NEGATIVE) Urine Nitrite NEGATIVE (NEGATIVE) Urine Bilirubin NEGATIVE (NEGATIVE) Urine Urobilinogen 1.0 (<2.0) EU/dL Ur Leukocyte Esterase NEGATIVE (NEGATIVE) Urine RBC 0-1 (0-2/HPF) Urine WBC 0-1 (0-5/HPF) Ur Epithelial Cells RARE (NONE-FEW) Urine Bacteria RARE (NEGATIVE) Result Diagrams: 02/29/20 10:22 02/29/20 10:22 Sepsis Event Note - Evaluation Sepsis Screening Result: No Definite Risk - Focused Exam Vital Signs: Vital Signs Temp Pulse Resp BP Pulse Ox 02/29/20 13:04 122 H 17 106/51 L 100 02/29/20 12:49 118 H 17 104/53 L 100 02/29/20 12:04 123 H 13 105/43 L 100 02/29/20 11:19 121 H 17 100/46 L 100 02/29/20 10:00 36.6 C 120 H 20 102/48 L 100 Date Exam was Performed: 03/03/20 Time Exam was Performed: 19:48 - Problem List (1) Prostate cancer metastatic to bone SNOMED Code(s): 363561512 ICD Code: C61 - MALIGNANT NEOPLASM OF PROSTATE; C79.51 - SECONDARY MALIGNANT NEOPLASM OF BONE Status: Acute (2) Anemia SNOMED Code(s): 624684091 ICD Code: D64.9 - ANEMIA, UNSPECIFIED Status: Acute Qualifiers: Anemia type: unspecified type Qualified Code(s): D64.9 - Anemia, unspecified (3) Bilateral pleural effusion SNOMED Code(s): 392377996 ICD Code: J90 - PLEURAL EFFUSION, NOT ELSEWHERE CLASSIFIED Status: Acute (4) Sinus tachycardia SNOMED Code(s): 56303721 ICD Code: R00.0 - TACHYCARDIA, UNSPECIFIED Status: Acute (5) Hypotension SNOMED Code(s): 25732277 ICD Code: I95.9 - HYPOTENSION, UNSPECIFIED Status: Acute Problem List Initiated/Reviewed/Updated: Yes Orders Last 24hrs: Active Orders 24 hr Category Date Time Status Patient Status [ADT] Stat ADT 02/29/20 13:57 Active Ambulate [RC] ASDIRECTED Care 02/29/20 15:15 Active Antiembolic Devices [RC] PER UNIT ROUTINE Care 02/29/20 15:17 Active Cardiac Monitoring [RC] CONTINUOUS Care 02/29/20 10:02 Active EKG Documentation Completion [RC] STAT Care 02/29/20 10:01 Active Overnight Pulse Oximetry [RC] Click to Edit Care 02/29/20 10:02 Active Oxygen Therapy [RC] PRN Care 02/29/20 15:15 Active Oxygen Therapy, ED [RC] STAT Care 02/29/20 10:02 Active RT Aerosol Therapy [RC] ASDIRECTED Care 02/29/20 15:18 Active VTE/DVT Education [RC] PER UNIT ROUTINE Care 02/29/20 15:15 Active Vital Signs [RC] Q4H Care 02/29/20 15:15 Active Heart Healthy Diet [DIET] Diet 02/29/20 Dinner Active CULTURE BLOOD [BC] Stat Lab 02/29/20 10:22 Received CULTURE BLOOD [BC] Stat Lab 02/29/20 10:53 Received RED BLOOD CELLS LP [BBK] Routine Lab 02/29/20 15:21 Ordered TYPE AND SCREEN [BBK] Routine Lab 02/29/20 15:21 Ordered Albuterol/Ipratropium [DuoNeb 3.0-0.5 MG/3 ML] Med 02/29/20 15:15 Ordered 3 ml NEB Q4HRRT PRN Morphine Med 02/29/20 15:15 Ordered 1 mg IVPUSH Q4H PRN Ondansetron [Zofran] Med 02/29/20 15:15 Ordered 4 mg IVPUSH Q4H PRN Pantoprazole [ProTONIX IV] Med 02/29/20 15:30 Ordered 40 mg IV DAILY Sodium Chloride 0.9% [Normal Saline] 500 ml Med 02/29/20 15:15 Ordered IV BOLUS Sodium Chloride 0.9% [Saline Flush] Med 02/29/20 10:01 Active 10 ml FLUSH ASDIRECTED PRN Sodium Chloride 0.9% [Saline Flush] [facility] 02/29/20 10:01 Active 2.5 ml FLUSH ASDIRECTED PRN Blood Culture x2 Reflex Set [OM.PC] Stat [facility] 02/29/20 10:01 Ordered Pulse Oximetry Continuous Monitoring [OM.PC] Routine Ot 02/29/20 10:01 Ordered Saline Lock Insert [OM.PC] Stat [facility] 02/29/20 10:01 Ordered Sequential Compression Device [OM.PC] Per Unit Routine [facility] 02/29/20 15:16 Ordered Severe Sepsis Onset Time [OM.PC] Stat [facility] 02/29/20 10:01 Ordered Transfuse PRBC [Transfuse Red Blood Cells] [COMM] [facility] 02/29/20 15:22 Ordered Routine Medication Orders Albuterol/Ipratropium (Duoneb 3.0-0.5 Mg/3 Ml) 3 ml NEB Q4H PRN PRN Reason: Shortness Of Breath/wheezing Sodium Chloride (Normal Saline) 500 mls @ 999 mls/hr IV BOLUS ONE Stop: 02/29/20 15:45 Morphine Sulfate (Morphine) 1 mg IVPUSH Q4H PRN PRN Reason: Pain (severe 7-10) Stop: 03/01/20 15:17 Ondansetron HCl (Zofran) 4 mg IVPUSH Q4H PRN PRN Reason: Nausea/Vomiting Pantoprazole Sodium (Protonix Iv) 40 mg IV DAILY [facility] Sodium Chloride (Saline Flush) 10 ml FLUSH ASDIRECTED PRN PRN Reason: Keep Vein Open Sodium Chloride (Saline Flush) 2.5 ml FLUSH ASDIRECTED PRN PRN Reason: Keep Vein Open Assessment/Plan Comment:: 64 y/o with stage 4 prostate Ca admitted for sinus tachycardia and hypotension Admitted to ICU initially now is on comfort care measures cont IV morphine for pain and air hunger cont IV Ativan for agitation Finish the blood transfusion which is already initiated Will get off the BIPAP and transition to [place] Family aware patient is very critical and can pass overnight cont palliative care Hospice consult in AM
[2020-02-29] MEDS ORDERED: Pantoprazole 40 MG Vial IV SCH (15:30)
[2020-02-29] MEDS ORDERED: Lactated Ringers 1,000 ML IV ONE (17:22)
[2020-02-29] MEDS ORDERED: Lactated Ringers 1,000 ML IV SCH (19:27)
[2020-02-29] MEDS ORDERED: LORazepam 2 MG/ML SDV IVPUSH PRN (20:13)
[2020-02-29] MEDS ORDERED: Hydrocolloid Dressing 4x4 Bandage ONE (20:23)
[2020-02-29] MEDS ORDERED: Pantoprazole 40 MG Vial IV ONE (20:30)
[2020-02-29] MEDS: Lactated Ringers 1,000 ML IV SCH (21:04)
[2020-02-29] MEDS: Morphine 2 MG/ML SYRINGE IVPUSH PRN (23:24)
[2020-03-01] MEDS: Lactated Ringers 1,000 ML IV SCH (04:06)
--- NOTE | 2020-03-01 08:26 | PCM.PN ---
- General Info Date of Service: 03/01/20 Admission Dx/Problem (Free Text): Admission Diagnosis/Problem Admission Diagnosis/Problem Dyspnea Subjective Update: Reports he is having pain No other concerns. Wants to be comfortable and wants Hospice. Functional Status: Denies: Pain Controlled (Nurse notified to bring medications in) - Review of Systems General: Reports: Other (reports pain everywhere) Pulmonary: Reports: No Symptoms. Denies: Shortness of Breath Cardiovascular: Reports: Edema. Denies: Chest Pain Gastrointestinal: Reports: No Symptoms. Denies: Abdominal Pain Skin: Reports: Dryness Neurological: Reports: No Symptoms. Denies: Confusion Psychiatric: Reports: No Symptoms - Patient Data Vitals - Most Recent: Last Vital Signs Temp 99.4 F 03/01/20 05:00 Pulse 120 H 03/01/20 05:00 Resp 20 03/01/20 05:00 BP 121/60 03/01/20 05:00 Pulse Ox 100 03/01/20 05:00 Weight - Most Recent: 74.888 kg I&O - Last 24 Hours: Intake & Output 02/29/20 03/01/20 03/01/20 22:59 06:59 14:59 Intake Total 1787 200 Output Total 250 400 Balance 1537 -200 Lab Results Last 24 Hours: Laboratory Results - last 24 hr 02/29/20 02/29/20 02/29/20 Range/Units 10:22 10:22 10:22 WBC 4.59 (4.0-11.0) K/uL RBC 3.10 L (4.50-5.90) M/uL Hgb 7.5 L (13.0-17.0) g/dL Hct 26.3 L (38.0-50.0) % MCV 84.8 (80.0-98.0) fL MCH 24.2 L (27.0-32.0) pg MCHC 28.5 L (31.0-37.0) g/dL RDW Std Deviation 60.2 (28.0-62.0) fl RDW Coeff of Kaley 19 H (11.0-15.0) % Plt Count 263 (150-400) K/uL MPV 8.10 (7.40-12.00) fL Neut % (Auto) 53.5 (48.0-80.0) % Lymph % (Auto) 28.5 (16.0-40.0) % [place] % (Auto) 15.0 (0.0-15.0) % Eos % (Auto) 2.8 (0.0-7.0) % Baso % (Auto) 0.2 (0.0-1.5) % Neut # (Auto) 2.5 (1.4-5.7) K/uL Lymph # (Auto) 1.3 (0.6-2.4) K/uL [place] # (Auto) 0.7 (0.0-0.8) K/uL Eos # (Auto) 0.1 (0.0-0.7) K/uL Baso # (Auto) 0.0 (0.0-0.1) K/uL Nucleated RBC % 0.0 /100WBC Nucleated RBCs # 0 K/uL INR 1.19 D-Dimer, Quantitative (0.0-0.50) mg/L FEU ABG pH (7.35-7.45) ABG pCO2 (35-45) mmHG ABG pO2 (75-100) mmHG ABG HCO3 (22-26) mEq/L ABG Total CO2 ABG Base Excess (-2.0-2.0) Lactate 1.0 (0.20-2.00) mmol/L Sodium (136-148) mmol/L Potassium (3.5-5.1) mmol/L Chloride (98-107) mmol/L Carbon Dioxide (21.0-32.0) mmol/L BUN (7.0-18.0) mg/dL Creatinine (0.8-1.3) mg/dL Est Cr Clr Drug Dosing Estimated GFR (MDRD) ml/min Glucose (74-106) mg/dL Calcium (8.5-10.1) mg/dL Magnesium (1.8-2.4) mg/dL Iron (50-175) ug/dL TIBC (250-450) ug/dL % Saturation (20-55) % Ferritin (26-388) ng/mL Total Bilirubin (0.2-1.0) mg/dL AST (15-37) IU/L ALT (14-63) IU/L Alkaline Phosphatase (46-116) U/L Troponin I (0.000-0.056) ng/mL B-Natriuretic Peptide (<100) PG/ML Total Protein (6.4-8.2) g/dL Albumin (3.4-5.0) g/dL Globulin (2.6-4.0) g/dL Albumin/Globulin Ratio (0.9-1.6) Urine Color Urine Appearance Urine pH (5.0-8.0) Ur Specific Hard[place] (1.001-1.035) Urine Protein (NEGATIVE) mg/dL Urine Glucose (UA) (NEGATIVE) mg/dL Urine Ketones (NEGATIVE) mg/dL Urine Occult Blood (NEGATIVE) Urine Nitrite (NEGATIVE) Urine Bilirubin (NEGATIVE) Urine Urobilinogen (<2.0) EU/dL Ur Leukocyte Esterase (NEGATIVE) Urine RBC (0-2/HPF) Urine WBC (0-5/HPF) Ur Epithelial Cells (NONE-FEW) Urine Bacteria (NEGATIVE) Blood Type Antibody Screen Crossmatch 02/29/20 02/29/20 02/29/20 Range/Units 10:22 10:22 10:22 WBC (4.0-11.0) K/uL RBC (4.50-5.90) M/uL Hgb (13.0-17.0) g/dL Hct (38.0-50.0) % MCV (80.0-98.0) fL MCH (27.0-32.0) pg MCHC (31.0-37.0) g/dL RDW Std Deviation (28.0-62.0) fl RDW Coeff of Kaley (11.0-15.0) % Plt Count (150-400) K/uL MPV (7.40-12.00) fL Neut % (Auto) (48.0-80.0) % Lymph % (Auto) (16.0-40.0) % [place] % (Auto) (0.0-15.0) % Eos % (Auto) (0.0-7.0) % Baso % (Auto) (0.0-1.5) % Neut # (Auto) (1.4-5.7) K/uL Lymph # (Auto) (0.6-2.4) K/uL [place] # (Auto) (0.0-0.8) K/uL Eos # (Auto) (0.0-0.7) K/uL Baso # (Auto) (0.0-0.1) K/uL Nucleated RBC % /100WBC Nucleated RBCs # K/uL INR D-Dimer, Quantitative 3.41 H (0.0-0.50) mg/L FEU ABG pH (7.35-7.45) ABG pCO2 (35-45) mmHG ABG pO2 (75-100) mmHG ABG HCO3 (22-26) mEq/L ABG Total CO2 ABG Base Excess (-2.0-2.0) Lactate (0.20-2.00) mmol/L Sodium 137 (136-148) mmol/L Potassium 3.5 (3.5-5.1) mmol/L Chloride 98 (98-107) mmol/L Carbon Dioxide 35.5 H (21.0-32.0) mmol/L BUN 5 L (7.0-18.0) mg/dL Creatinine 0.5 L (0.8-1.3) mg/dL Est Cr Clr Drug Dosing TNP Estimated GFR (MDRD) > 60.0 ml/min Glucose 103 (74-106) mg/dL Calcium 8.1 L (8.5-10.1) mg/dL Magnesium (1.8-2.4) mg/dL Iron (50-175) ug/dL TIBC (250-450) ug/dL % Saturation (20-55) % Ferritin (26-388) ng/mL Total Bilirubin 0.4 (0.2-1.0) mg/dL AST 84 H (15-37) IU/L ALT 18 (14-63) IU/L Alkaline Phosphatase 685 H (46-116) U/L Troponin I < 0.050 (0.000-0.056) ng/mL B-Natriuretic Peptide 76 (<100) PG/ML Total Protein 5.6 L (6.4-8.2) g/dL Albumin 2.0 L (3.4-5.0) g/dL Globulin 3.6 (2.6-4.0) g/dL Albumin/Globulin Ratio 0.6 L (0.9-1.6) Urine Color Urine Appearance Urine pH (5.0-8.0) Ur Specific [place] (1.001-1.035) Urine Protein (NEGATIVE) mg/dL Urine Glucose (UA) (NEGATIVE) mg/dL Urine Ketones (NEGATIVE) mg/dL Urine Occult Blood (NEGATIVE) Urine Nitrite (NEGATIVE) Urine Bilirubin (NEGATIVE) Urine Urobilinogen (<2.0) EU/dL Ur Leukocyte Esterase (NEGATIVE) Urine RBC (0-2/HPF) Urine WBC (0-5/HPF) Ur Epithelial Cells (NONE-FEW) Urine Bacteria (NEGATIVE) Blood Type Antibody Screen Crossmatch 02/29/20 02/29/20 02/29/20 Range/Units 10:22 10:22 14:02 WBC (4.0-11.0) K/uL RBC (4.50-5.90) M/uL Hgb (13.0-17.0) g/dL Hct (38.0-50.0) % MCV (80.0-98.0) fL MCH (27.0-32.0) pg MCHC (31.0-37.0) g/dL RDW Std Deviation (28.0-62.0) fl RDW Coeff of Kaley (11.0-15.0) % Plt Count (150-400) K/uL MPV (7.40-12.00) fL Neut % (Auto) (48.0-80.0) % Lymph % (Auto) (16.0-40.0) % [place] % (Auto) (0.0-15.0) % Eos % (Auto) (0.0-7.0) % Baso % (Auto) (0.0-1.5) % Neut # (Auto) (1.4-5.7) K/uL Lymph # (Auto) (0.6-2.4) K/uL [place] # (Auto) (0.0-0.8) K/uL Eos # (Auto) (0.0-0.7) K/uL Baso # (Auto) (0.0-0.1) K/uL Nucleated RBC % /100WBC Nucleated RBCs # K/uL INR D-Dimer, Quantitative (0.0-0.50) mg/L FEU ABG pH (7.35-7.45) ABG pCO2 (35-45) mmHG ABG pO2 (75-100) mmHG ABG HCO3 (22-26) mEq/L ABG Total CO2 ABG Base Excess (-2.0-2.0) Lactate (0.20-2.00) mmol/L Sodium (136-148) mmol/L Potassium (3.5-5.1) mmol/L Chloride (98-107) mmol/L Carbon Dioxide (21.0-32.0) mmol/L BUN (7.0-18.0) mg/dL Creatinine (0.8-1.3) mg/dL Est Cr Clr Drug Dosing Estimated GFR (MDRD) ml/min Glucose (74-106) mg/dL Calcium (8.5-10.1) mg/dL Magnesium 2.0 (1.8-2.4) mg/dL Iron 19 L (50-175) ug/dL TIBC 70 L (250-450) ug/dL % Saturation 27.14 (20-55) % Ferritin 4423 H (26-388) ng/mL Total Bilirubin (0.2-1.0) mg/dL AST (15-37) IU/L ALT (14-63) IU/L Alkaline Phosphatase (46-116) U/L Troponin I (0.000-0.056) ng/mL B-Natriuretic Peptide (<100) PG/ML Total Protein (6.4-8.2) g/dL Albumin (3.4-5.0) g/dL Globulin (2.6-4.0) g/dL Albumin/Globulin Ratio (0.9-1.6) Urine Color YELLOW Urine Appearance CLEAR Urine pH 5.5 (5.0-8.0) Ur Specific [place] 1.015 (1.001-1.035) Urine Protein NEGATIVE (NEGATIVE) mg/dL Urine Glucose (UA) NEGATIVE (NEGATIVE) mg/dL Urine Ketones NEGATIVE (NEGATIVE) mg/dL Urine Occult Blood NEGATIVE (NEGATIVE) Urine Nitrite NEGATIVE (NEGATIVE) Urine Bilirubin NEGATIVE (NEGATIVE) Urine Urobilinogen 1.0 (<2.0) EU/dL Ur Leukocyte Esterase NEGATIVE (NEGATIVE) Urine RBC 0-1 (0-2/HPF) Urine WBC 0-1 (0-5/HPF) Ur Epithelial Cells RARE (NONE-FEW) Urine Bacteria RARE (NEGATIVE) Blood Type Antibody Screen Crossmatch 02/29/20 02/29/20 Range/Units 16:15 17:50 WBC (4.0-11.0) K/uL RBC (4.50-5.90) M/uL Hgb (13.0-17.0) g/dL Hct (38.0-50.0) % MCV (80.0-98.0) fL MCH (27.0-32.0) pg MCHC (31.0-37.0) g/dL RDW Std Deviation (28.0-62.0) fl RDW Coeff of Kaley (11.0-15.0) % Plt Count (150-400) K/uL MPV (7.40-12.00) fL Neut % (Auto) (48.0-80.0) % Lymph % (Auto) (16.0-40.0) % [place] % (Auto) (0.0-15.0) % Eos % (Auto) (0.0-7.0) % Baso % (Auto) (0.0-1.5) % Neut # (Auto) (1.4-5.7) K/uL Lymph # (Auto) (0.6-2.4) K/uL [place] # (Auto) (0.0-0.8) K/uL Eos # (Auto) (0.0-0.7) K/uL Baso # (Auto) (0.0-0.1) K/uL Nucleated RBC % /100WBC Nucleated RBCs # K/uL INR D-Dimer, Quantitative (0.0-0.50) mg/L FEU ABG pH 7.295 L (7.35-7.45) ABG pCO2 68 H (35-45) mmHG ABG pO2 120 H (75-100) mmHG ABG HCO3 33 H (22-26) mEq/L ABG Total CO2 32.2 ABG Base Excess 5.4 H (-2.0-2.0) Lactate (0.20-2.00) mmol/L Sodium (136-148) mmol/L Potassium (3.5-5.1) mmol/L Chloride (98-107) mmol/L Carbon Dioxide (21.0-32.0) mmol/L BUN (7.0-18.0) mg/dL Creatinine (0.8-1.3) mg/dL Est Cr Clr Drug Dosing Estimated GFR (MDRD) ml/min Glucose (74-106) mg/dL Calcium (8.5-10.1) mg/dL Magnesium (1.8-2.4) mg/dL Iron (50-175) ug/dL TIBC (250-450) ug/dL % Saturation (20-55) % Ferritin (26-388) ng/mL Total Bilirubin (0.2-1.0) mg/dL AST (15-37) IU/L ALT (14-63) IU/L Alkaline Phosphatase (46-116) U/L Troponin I (0.000-0.056) ng/mL B-Natriuretic Peptide (<100) PG/ML Total Protein (6.4-8.2) g/dL Albumin (3.4-5.0) g/dL Globulin (2.6-4.0) g/dL Albumin/Globulin Ratio (0.9-1.6) Urine Color Urine Appearance Urine pH (5.0-8.0) Ur Specific [place] (1.001-1.035) Urine Protein (NEGATIVE) mg/dL Urine Glucose (UA) (NEGATIVE) mg/dL Urine Ketones (NEGATIVE) mg/dL Urine Occult Blood (NEGATIVE) Urine Nitrite (NEGATIVE) Urine Bilirubin (NEGATIVE) Urine Urobilinogen (<2.0) EU/dL Ur Leukocyte Esterase (NEGATIVE) Urine RBC (0-2/HPF) Urine WBC (0-5/HPF) Ur Epithelial Cells (NONE-FEW) Urine Bacteria (NEGATIVE) Blood Type A POSITIVE Antibody Screen NEGATIVE Crossmatch See Detail Med Orders - Current: Current Medications Albuterol/Ipratropium (Duoneb 3.0-0.5 Mg/3 Ml) 3 ml NEB Q4H PRN PRN Reason: Shortness Of Breath/wheezing Lactated Ringer's (Ringers, Lactated) 1,000 mls @ 125 mls/hr IV ASDIRECTED [facility] Last Admin: 03/01/20 04:06 Dose: 125 mls/hr Documented by: Lorazepam (Ativan) 1 mg IVPUSH Q4H PRN PRN Reason: Anxiety Morphine Sulfate (Morphine) 2 mg IVPUSH Q4H PRN PRN Reason: Pain Stop: 03/01/20 15:17 Last Admin: 02/29/20 23:24 Dose: 2 mg Documented by: Ondansetron HCl (Zofran) 4 mg IVPUSH Q4H PRN PRN Reason: Nausea/Vomiting Pantoprazole Sodium (Protonix Iv) 40 mg IVPUSH Q24H [facility] Sodium Chloride (Saline Flush) 10 ml FLUSH ASDIRECTED PRN PRN Reason: Keep Vein Open Sodium Chloride (Saline Flush) 2.5 ml FLUSH ASDIRECTED PRN PRN Reason: Keep Vein Open Discontinued Medications Sodium Chloride (Normal Saline) 500 mls @ 999 mls/hr IV BOLUS ONE Stop: 02/29/20 15:45 Last Admin: 02/29/20 16:43 Dose: 999 mls/hr Documented by: Lactated Ringer's (Ringers, Lactated) 1,000 mls @ 999 mls/hr IV .BOLUS ONE Stop: 02/29/20 18:22 Last Admin: 02/29/20 17:36 Dose: 999 mls/hr Documented by: Lactated Ringer's (Ringers, Lactated) 1,000 mls @ 200 mls/hr IV ASDIRECTED [facility] Last Admin: 02/29/20 19:27 Dose: 200 mls/hr Documented by: Iopamidol (Isovue-370 (76%)) 100 ml IVPUSH ONETIME ONE Stop: 02/29/20 12:37 Last Admin: 02/29/20 12:37 Dose: 100 ml Documented by: Morphine Sulfate (Morphine) 1 mg IVPUSH Q4H PRN PRN Reason: Pain (severe 7-10) Stop: 03/01/20 15:17 Pantoprazole Sodium (Protonix Iv) 40 mg IV DAILY [facility] Last Admin: 02/29/20 21:05 Dose: Not Given Documented by: Pantoprazole Sodium (Protonix Iv) 40 mg IV ONETIME ONE Stop: 02/29/20 20:31 Last Admin: 02/29/20 21:11 Dose: 40 mg Documented by: Wound Care/Dressing Products [place] [facility] [place] Confirm Administered Dose 1 each .ROUTE .STK-MED ONE Stop: 02/29/20 20:24 Last Admin: 02/29/20 21:14 Dose: 1 each Documented by: - Exam General: Alert, Oriented, Lethargic Neck: Supple (missing teeth, dry muscous memebranes) Lungs: Clear to Auscultation, Normal Respiratory Effort Cardiovascular: Regular Rhythm, Tachycardia GI/Abdominal Exam: Normal Bowel Sounds, Soft, Tender Extremities: Pedal Edema Neurological: No New Focal Deficit Psy/Mental Status: Alert, Normal Affect, Normal Mood Sepsis Event Note - Evaluation Sepsis Screening Result: No Definite Risk - Focused Exam Vital Signs: Vital Signs Temp Temp Pulse Resp BP Pulse Ox 03/01/20 05:00 99.4 F 120 H 20 121/60 100 03/01/20 00:00 97.7 F 78 24 H 117/65 99 02/29/20 23:30 97.7 F 20 115/56 L 98 02/29/20 22:30 97.5 F 18 117/53 L 98 02/29/20 21:00 97.5 F 25 H 115/68 98 Date Exam was Performed: 03/01/20 Time Exam was Performed: 12:47 - Problem List & Annotations (1) Palliative care patient SNOMED Code(s): 335513507, 841920390 Code(s): Z51.5 - ENCOUNTER FOR PALLIATIVE CARE Status: Acute Current Visit: Yes (2) Prostate cancer metastatic to bone SNOMED Code(s): 223238561 Code(s): C61 - MALIGNANT NEOPLASM OF PROSTATE; C79.51 - SECONDARY MALIGNANT NEOPLASM OF BONE Status: Acute Current Visit: Yes - Problem List Review Problem List Initiated/Reviewed/Updated: Yes - Plan Plan:: 64 y/o with stage 4 prostate Ca admitted for sinus tachycardia and hypotension 1 Palliative care - Metastatic prostate cancer - Family, POA notified of poor prognosis declines central line and emphasized patient wants Hospice. - Cont IV Morphine for pain and air hunger, increased dose and decreased frequency - cont IV Ativan for agitation - cont palliative care - Discussed with Hospice this morning, they are concerned about Hospice in the home because there is no care available, friends aren't able to provide care 24 hrs a day and family is coming in March. Recommends placement for Hospice care/palliative care - Consult case management for placement - grave prognosis
[2020-03-01] MEDS: Morphine 2 MG/ML SYRINGE IVPUSH PRN (09:11)
[2020-03-01] MEDS ORDERED: Morphine 4 MG/ML Syringe IVPUSH PRN (09:44)
[2020-03-01] MEDS ORDERED: Ondansetron 4 MG Tab.DIS PO PRN (16:49)
[2020-03-01] MEDS ORDERED: Morphine 10 MG/0.5 ML Oral Syringe SL PRN ×2 (16:49→17:41)
[2020-03-01] MEDS ORDERED: LORazepam Conc Solution 2 MG/ML 30 ML Bottle PO PRN (16:51)
--- NOTE | 2020-03-01 18:05 | PCM.SN.2 ---
- Free Text/Narrative Note: 64 y/o with stage 4 prostate Ca admitted for sinus tachycardia and hypotension+Dyspnea Code status: DNR/DNI comfort measures Seen at bedside; no chest rise and or appreciable breath sounds on auscultation. Non-responsive to verbal stimuli No heart sounds appreciated Negative pupillary reflex:fixed and dilated. No pulse appreciated. Nurses at bedside to confirm findings. Time of : 1730
[2020-03-01] MEDS ORDERED: Pantoprazole 40 MG Vial IVPUSH SCH (21:00)
--- NOTE | 2020-03-02 08:01 | PCM.DCSUM1 ---
Discharge Summary - Hospital Course Brief History: Patient is a 64-year-old male past medical history of stage 4 prostate adenocarcinoma with metastatic disease including spinal canal invasion and threatened spinal cord compression within the lumbar spine, status post radiotherapy.COPD, bilateral pleural effusions, GERD, Prostate cancer in remission presenting with shortness of breath since about 2:00 this morning. Patient normally uses 4 L of oxygen by nasal cannula. His friend called 911 because he was concerned about his breathing and found him covered in his faeces.. He normally ambulates with a walker but states that he has been too weak to do so over the past 2 weeks. Patient denies any fever or chest discomfort. He does complain of chronic lower extremity edema that he states is not any worse lately. CBC shows a anemia. INR is normal. D-dimer elevated at 3.41. Normal lactate. Electrolytes and renal function are reassuring. Troponin negative. BNP within normal limits. Hepatic markers suggest poor nutrition. Chest x-ray stable. CT pulmonary angiogram shows bilateral pleural effusions but no evidence of pulmonary embolism. Patient was in [facility] sinus tachy cardia in 120s to 130s with intermittent SVT in 140s. He was admitted to ICU for further care due to concern of persistent tachycardia and soft pressures. When i saw the patient in ER he was lethargic, looked extremely dry, wasnt able to tell me his wishes about his code status as his mentation was not normal. I contacted his friend Marylu who is his vp care management as well she informed he has signed DNR/DNI papers in January and was going to be on hospice soon. He was supposed to have a meeting with hospice on Sunday. ABG was obatined which showed RA,hypercapnea, BiPAP was started, patient was reluctant to BiPAP. His BP started to go down despite adequate IV fluids and the ongoing blood transfusion. I called his POA , patients brother Chepe ([phone]) to get an consent for central line, Mr Mo stated his brother wouldnt not want a central line and would like the patient be made comfortable with palliative measures in place. Patient is being made comfort care and downgarded to [facility]. - Discharge Data Discharge Date: 03/01/20 Discharge Disposition: 20 Preliminary Cause of *Q: Respiratory Failure Condition: - Referral to Home Health Primary Care Physician: PCP None - Discharge Diagnosis/Problem(s) (1) Palliative care patient SNOMED Code(s): 472112851, 818025091 ICD Code: Z51.5 - ENCOUNTER FOR PALLIATIVE CARE Status: Acute (2) Prostate cancer metastatic to bone SNOMED Code(s): 109551441 ICD Code: C61 - MALIGNANT NEOPLASM OF PROSTATE; C79.51 - SECONDARY MALIGNANT NEOPLASM OF BONE Status: Acute - Patient Summary/Data Consults: Consultations 02/29/20 20:27 Consult to Hospice [CONS] Routine Hospital Course: Cause of : metastatic prostate cancer Dimas was admitted, initially treated for hypotension, sepsis. Family was contacted, expressed he was seeking hosice care and would not want life saving measures. Dimas was placed on comfort measures with Morphine for pain. 03/01 1730, nursing noticed no spontaneous breathing and no pulse. Dr Thomas notified and confirmed at 1730. Family notified of passing, no family at bedside. home notified. - Discharge Plan Home Medications: Home Meds Albuterol Sulfate [Proair Hfa] 90 mcg INH DAILY 02/20/19 [History] dilTIAZem HCL [Dilt-XR] 180 mg PO DAILY 02/29/20 [History] Referrals: PCP,Unknown [Ordering Only Provider] - - Discharge Summary/Plan Comment DC Time >30 min.: No - Patient Data Vitals - Most Recent: Last Vital Signs Temp 97.1 F 03/01/20 09:00 Pulse 121 H 03/01/20 09:00 Resp 24 H 03/01/20 09:00 BP 126/56 L 03/01/20 09:00 Pulse Ox 97 03/01/20 09:00 Weight - Most Recent: 74.888 kg I&O - Last 24 hours: Intake & Output 03/01/20 03/02/20 03/02/20 22:59 06:59 14:59 Intake Total 20 Balance 20 JACKIE Results - Last 24 hrs: Microbiology 02/29/20 10:53 Aerobic Blood Culture - Preliminary Blood - Venous - Lab Draw NO GROWTH AFTER 1 DAY Anaerobic Blood Culture - Preliminary NO GROWTH AFTER 1 DAY 02/29/20 10:22 Aerobic Blood Culture - Preliminary Blood - Venous NO GROWTH AFTER 1 DAY Anaerobic Blood Culture - Preliminary NO GROWTH AFTER 1 DAY Med Orders - Current: Current Medications Discontinued Medications Albuterol/Ipratropium (Duoneb 3.0-0.5 Mg/3 Ml) 3 ml NEB Q4H PRN PRN Reason: Shortness Of Breath/wheezing Sodium Chloride (Normal Saline) 500 mls @ 999 mls/hr IV BOLUS ONE Stop: 02/29/20 15:45 Last Admin: 02/29/20 16:43 Dose: 999 mls/hr Documented by: Lactated Ringer's (Ringers, Lactated) 1,000 mls @ 999 mls/hr IV .BOLUS ONE Stop: 02/29/20 18:22 Last Admin: 02/29/20 17:36 Dose: 999 mls/hr Documented by: Lactated Ringer's (Ringers, Lactated) 1,000 mls @ 125 mls/hr IV [facility]IRECTED [facility] Last Admin: 03/01/20 04:06 Dose: 125 mls/hr Documented by: Lactated Ringer's (Ringers, Lactated) 1,000 mls @ 200 mls/hr IV ASDIRECTED [facility] Last Admin: 02/29/20 19:27 Dose: 200 mls/hr Documented by: Iopamidol (Isovue-370 (76%)) 100 ml IVPUSH ONETIME ONE Stop: 02/29/20 12:37 Last Admin: 02/29/20 12:37 Dose: 100 ml Documented by: Lorazepam (Ativan) 1 mg IVPUSH Q4H PRN PRN Reason: Anxiety Lorazepam (Ativan) 1 mg PO Q4H PRN PRN Reason: anxiety, agitation, restlessne Morphine Sulfate (Morphine) 1 mg IVPUSH Q4H PRN PRN Reason: Pain (severe 7-10) Stop: 03/01/20 15:17 Morphine Sulfate (Morphine) 2 mg IVPUSH Q4H PRN PRN Reason: Pain Stop: 03/01/20 15:17 Last Admin: 03/01/20 09:11 Dose: 2 mg Documented by: Morphine Sulfate (Morphine) 4 mg IVPUSH Q1H PRN PRN Reason: Pain, agitation, air hunger Last Admin: 03/01/20 11:51 Dose: 4 mg Documented by: Morphine Sulfate (Morphine 10 Mg/0.5 Ml Oral Syringe) 10 mg SL Q1H PRN PRN Reason: pain,agitation,airhunger Morphine Sulfate (Morphine 10 Mg/0.5 Ml Oral Syringe) 10 mg SL Q1H PRN PRN Reason: pain,agitation,airhunger Ondansetron HCl (Zofran) 4 mg IVPUSH Q4H PRN PRN Reason: Nausea/Vomiting Ondansetron HCl (Zofran Odt) 4 mg PO Q4H PRN PRN Reason: Nausea/Vomiting Pantoprazole Sodium (Protonix Iv) 40 mg IV DAILY [facility] Last Admin: 02/29/20 21:05 Dose: Not Given Documented by: Pantoprazole Sodium (Protonix Iv) 40 mg IV ONETIME ONE Stop: 02/29/20 20:31 Last Admin: 02/29/20 21:11 Dose: 40 mg Documented by: Pantoprazole Sodium (Protonix Iv) 40 mg IVPUSH Q24H [facility] Sodium Chloride (Saline Flush) 10 ml FLUSH ASDIRECTED PRN PRN Reason: Keep Vein Open Sodium Chloride (Saline Flush) 2.5 ml FLUSH ASDIRECTED PRN PRN Reason: Keep Vein Open Wound Care/Dressing Products (Duoderm [facility]) Confirm Administered Dose 1 each .ROUTE .STK-MED ONE Stop: 02/29/20 20:24 Last Admin: 02/29/20 21:14 Dose: 1 each Documented by:
== END 2020-03-01 18:38 | disposition expired | DRG 314 ==
LOC: MW.ED 09:54 → MW.MS 13:57 → MW.ICU 16:48 → OBSVTOIN 19:32 → MW.MS 20:16
PROVIDERS: ADMIT Student in an Organized Health Care Education/Training Program; ATTEND Student in an Organized Health Care Education/Training Program
DX: I95.9 Hypotension, unspecified (principal); J96.90 Respiratory failure, unspecified, unspecified whether with hypoxia or hypercapnia; I47.1 Supraventricular tachycardia; C79.51 Secondary malignant neoplasm of bone; J90 Pleural effusion, not elsewhere classified; Z66 Do not resuscitate; Z51.5 Encounter for palliative care; C61 Malignant neoplasm of prostate; J44.9 Chronic obstructive pulmonary disease, unspecified; K21.9 Gastro-esophageal reflux disease without esophagitis; D64.9 Anemia, unspecified; Z79.899 Other long term (current) drug therapy; Z92.3 Personal history of irradiation; Z87.01 Personal history of pneumonia (recurrent); Z90.89 Acquired absence of other organs
CPT/HCPCS: 36415; 36430; 36600; 71045; 71045-26; 71275; 71275-26; 80053; 81001; 82728; 82803; 83550; 83605; 83735; 83880; 84484; 85025; 85379; 85610; 86850; 86900; 86901; 86920; 86921; 86922; 87040; 93005; 94660; 99283; 99285-25; C9113; J2270; J7040; J7120; P9016; Q9967